=== PATIENT | male | born 1965 | race Caucasian/White ===

== ENCOUNTER → 2020-04-11 09:04 | Outpatient (REF) | payer BC, SELFPAY | LOC: ANHLAB 09:04 | PROVIDERS: PCP Internal Medicine; Visit Provider Nurse Practitioner | DX: C44.519 Basal cell carcinoma of skin of other part of trunk (principal); C44.219 Basal cell carcinoma of skin of left ear and external auricular canal | CPT/HCPCS: 88305 ==

== ENCOUNTER → 2020-06-05 07:08 | Outpatient (REF) | payer BC, SELFPAY | LOC: ANHLAB 07:08 | PROVIDERS: PCP Internal Medicine; Visit Provider Nurse Practitioner | DX: C44.519 Basal cell carcinoma of skin of other part of trunk (principal); C44.219 Basal cell carcinoma of skin of left ear and external auricular canal | CPT/HCPCS: 88305; 88331 ==

== ENCOUNTER 2021-07-12 08:19 | Emergency (ER) | payer OTHER, BC, SELFPAY ==
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
[2021-07-12 08:27] VITALS: BP 149/94; PULSE 72; RESP 16; TEMP 36.1; O2SAT 97
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
[2021-07-12] MEDS: HYDROcodone/acetaminophen (*CRX) 5-325 MG TABLET 1 TAB PO (10:00)
[2021-07-12] MEDS: IBUPROFEN 400 MG TABLET 800 MG PO (10:00)
== END 2021-07-12 10:00 | disposition home or self-care (01) ==
PROVIDERS: Emergency Provider Emergency Medicine; PCP Internal Medicine
DX: S16.1XXA Strain of muscle, fascia and tendon at neck level, initial encounter (principal); S39.012A Strain of muscle, fascia and tendon of lower back, initial encounter; E78.00 Pure hypercholesterolemia, unspecified; V49.40XA Driver injured in collision with unspecified motor vehicles in traffic accident, initial encounter; M51.36 Other intervertebral disc degeneration, lumbar region
CPT/HCPCS: 72100; 72125; 99284; A9270

== ENCOUNTER 2022-08-07 08:00 | Outpatient (NON) | payer BC, SELFPAY | END 2022-08-07 08:01 | disposition home or self-care (01) | PROVIDERS: PCP Internal Medicine; Visit Provider Nurse Practitioner | DX: D23.62 Other benign neoplasm of skin of left upper limb, including shoulder (principal); L82.1 Other seborrheic keratosis; B07.8 Other viral warts | CPT/HCPCS: 88305; 88342 ==

== ENCOUNTER 2023-01-19 13:40 | Emergency (ER) | payer BC, SELFPAY ==
[2023-01-19 13:59] VITALS: BP 151/81; PULSE 89; RESP 18; TEMP 36.2; O2SAT 97
--- NOTE | 2023-01-19 14:25 | ED.URI ---
HPI - URI/Sore Throat General Chief Complaint: Upper Respiratory Infection Stated Complaint: Sore Throat,Congestion,Cough Time Seen by Provider: 01/19/23 14:15 Source: patient Mode of arrival: ambulatory Limitations: no limitations History of Present Illness HPI Narrative: Patient is a 57-year-old male that presents with cough, sore throat that started Friday. States his throat is a 3/10 currently due to taking 100 mg of ibuprofen. Reports cough is productive. Reports having hot flashes and chills. Has been taking Sudafed and Benadryl, reports the 2nd dose of Sudafed made him irrationally angry. Denies any congestion, ear pain, nausea, vomiting, diarrhea. Throat soreness is constant, cough and chest congestion is worsening. Taken at home COVID test was negative Related Data Home Medications Medication Instructions Recorded Confirmed atorvastatin 40 mg tablet 40 mg PO DAILY 07/12/21 01/19/23 Allergies Allergy/AdvReac Type Severity Reaction Status Date / Time No Known Allergies Allergy Verified 01/19/23 13:56 Review of Systems Review of Systems: All systems reviewed & are unremarkable except as noted in HPI and below Constitutional: Constitutional: Denies body ache(s), Reports chills, Reports fever(s), Denies headache(s), Denies malaise and Denies weakness Eyes: Eyes: Denies loss of vision ENT: Denies otalgia, Denies headache(s), Reports nasal congestion, Denies sinus pain and Denies sore throat Cardiovascular: Cardiovascular: Denies chest pain, Denies irregular heart rhythm and Denies dyspnea Respiratory: Respiratory: Reports cough and Denies dyspnea Gastrointestinal: Gastrointestinal: Denies abdominal pain, Denies melena, Denies hematochezia, Denies diarrhea, Denies nausea and Denies vomiting Musculoskeletal: Musculoskeletal: Denies back pain, Denies myalgias and Denies arthralgias Integumentary/Breasts: Skin/Breast: Denies pruritus and Denies rash Neurologic: Denies headache(s), Denies loss of vision and Denies weakness Psychiatric: Psychiatric: Reports no additional psychiatric complaints [facility] Past Medical History Medical History (Updated 01/19/23 @ 14:29 by Izzy Garcia, PHOTOGRAPHER MODEL) Actinic keratosis Basal cell carcinoma (BCC) of antihelix of left ear Basal cell carcinoma (BCC) of upper back Benign mole High cholesterol History of basal cell carcinoma (BCC) Surgical History Surgical History History of blepharoplasty History of repair of ACL Family History Family History Father Hypertension Family history of alcoholism Family history of smoking Family history of chronic obstructive pulmonary disease, Onset Age: 67 Family history of coronary artery disease Patient's father is Family history of elevated blood lipids Social History Social History Smoking status: Never smoker Alcohol intake: current Comments At time of signature, agree with nursing past medical, surgical, social and family history. There is no relevant family history pertinent to the presenting complaint. Exam Const: General: cooperative, healthy appearing, comfortable, no acute distress and well nourished Nutritional Appearance: well nourished Orientation/consciousness: patient oriented x3 Limitations: no limitations HENMT: Head: normal to inspection, normocephalic and atraumatic Ears: external ears normal and TM's normal bilaterally Face/Nose/Sinus: Normal external nose present, normal facial exam, sinuses nontender and face symmetric Face and sinus: normal facial exam, sinuses nontender and face symmetric Mouth: Yes Normal oral and palatal mucosa present, Yes lip normal and Yes moist mucous membranes Teeth and gingiva: dentition normal Throat: tonsils normal, uvula midline, posterior oropharynx abnormal erythema and postnasa
== END 2023-01-19 14:30 | disposition home or self-care (01) ==
PROVIDERS: Emergency Provider Nurse Practitioner Family; PCP Internal Medicine
DX: J06.9 Acute upper respiratory infection, unspecified (principal)
CPT/HCPCS: 87081; 87880; 99213; G0463

== ENCOUNTER 2023-09-08 08:00 | Outpatient (NON) | payer BC, SELFPAY | END 2023-09-08 08:01 | disposition home or self-care (01) | LOC: ANHLAB 09-10 14:10 | PROVIDERS: PCP Internal Medicine; Visit Provider Nurse Practitioner | DX: L98.499 Non-pressure chronic ulcer of skin of other sites with unspecified severity (principal) | CPT/HCPCS: 88305 ==

== ENCOUNTER 2024-06-14 09:23 | Outpatient (CLI) | payer BC, SELFPAY ==
[2024-06-14 09:57] LABS: Basophils Absolute Auto 0.1 K/mm3 (0.0-0.1); Basophils Percent Auto 0.8 % (0.2-1.2); Eosinophils Absolute Auto 0.1 K/mm3 (0-0.3); Eosinophils Percent Auto 1.5 % (0-4.4); Hematocrit 44.9 % (42.0-52.0); Hemoglobin 14.8 g/dL (14.0-18.0); Immature Granulocyte Absolute 0.02 K/mm3 (0.00-0.031); Immature Granulocyte Percent A 0.3 % (0-0.5); Lymphocytes Absolute Auto 2.16 K/mm3 (0.9-3.2); Lymphocytes Percent Auto 36.2 % (18.3-44.2); Mean Corpuscular Hemoglobin 28.5 pg (26-34); Mean Corpuscular Volume 86.3 fl (80-100); Mean Platelet Volume 10.4 fl (7.4-10.4); Monocytes Absolute Auto 0.5 K/mm3 (0.1-0.6); Monocytes Percent Auto 7.6 % (2.6-8.5); Neutrophils Absolute Auto 3.2 K/mm3 (1.3-6.7); Neutrophils Percent Auto 53.6 % (45.5-73.1); Platelet Count Result 207 k/mm3 (150-375); Red Cell Distribution Width 13.1 % (11.5-14.5)
[2024-06-14 12:06] LABS: Alanine Aminotransferase 46 U/L (6-50); Albumin Level 4.7 g/dL (3.5-5.1); Alkaline Phosphatase 47 U/L (38-126); Anion Gap 12 mmol/L (4-12); Aspartate Amino Transferase 31 U/L (17-59); Blood Urea Nitrogen 15 mg/dL (9-20); Calcium 9.3 mg/dL (8.4-10.2); Carbon Dioxide 26 mmol/L (22-30); Chloride 101 mmol/L (98-107); Cholesterol 167 mg/dL (0-200); Estimated Glomerular Filt Rate > 60; Glucose 126 mg/dL (65-110); HDL Direct 46 mg/dL; Potassium 4.2 mmol/L (3.4-5.0); Sodium 139 mmol/L (137-145); Triglycerides 171 mg/dL (<150); Uric Acid 7.8 mg/dL (3.5-8.5)
[2024-06-14 12:17] LABS: LDL Cholesterol Direct 84 mg/dL
== END 2024-06-14 09:24 | disposition home or self-care (01) ==
LOC: ANHLAB 09:28
PROVIDERS: PCP Internal Medicine; Visit Provider Internal Medicine
DX: E78.5 Hyperlipidemia, unspecified (principal); M79.671 Pain in right foot
CPT/HCPCS: 36415; 80053; 80061; 84550; 85025

== ENCOUNTER 2025-03-14 09:39 | Outpatient (CLI) | payer BC, SELFPAY ==
--- OUTSIDE RECORDS SUMMARY | 2025-03-14 10:11 | XMS_ITS | Data Portability ---
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 If he gets approved see me for weeks if not 4 months hydroxyzine 25 q.h.s. p.r.n. anxiety [email or web address] Not available 05/16/2023 18:20:24 07/10/2023 07/10/2023 Blood work revie wed healthy lifestyle choices discussed get back on the Wegovy See me 3 months needs PSA Not available 07/10/2023 14:49:30 Plan of Treatment Reminders Order Date Submit Date Provider Last Modified By Organization Details Last Modified Time Details Appointments None recorded. Lab CMP, serum or plasma 2022 023 ALESSANDRO Not available 13:08:27 CBC w/ auto diff 2022 023 ALESSANDRO Not available 12:46:19 lipid panel, serum 2022 023 ALESSANDRO Not available 13:08:37 cortisol, serum or plasma 2022 023 ALESSANDRO Not available 13:32:53 testosteron e, free + total, serum 2022 023 ALESSANDRO Not available 09:14:25 T4, free, serum 2022 023 ALESSANDRO Not available 13:20:23 TSH, serum or plasma 2022 023 ALESSANDRO Not available 13:32:58 T3, free, serum or plasma 2022 023 ALESSANDRO Not available 13:20:30 Referral None recorded. Procedures None recorded. Surgeries None recorded. Imaging None recorded. Medication Orders Wegovy 0.25 mg/0.5 mL subcutaneou s pen injector 2022 023 [facility]/Pharmacy #[id number], [address] [place], [address], 12:25:31 Wegovy 0.25 mg/0.5 mL subcutaneou s pen injector 2022 023 [email or web address] [facility]/Pharmacy #[id number], [address] [place], [address], 13:08:20 hydroxyzine HCl 25 mg tablet 2022 023 [email or web address] [facility]/Pharmacy #[id number], [address] [place], [address], 11:32:37 Patient TargetsNo targets recorded. Patient Instructions Encounter Date Encounter Id Patient Instructions Last Modified By Organization Details Last Modified Time 07/10/2023 [id number] risk assessment* [id number] Not availabl e 07/10/2023 12:25:31 INFLUENZA VACCIN E TD/TDAP PNEUMONIA VACCINE Ordered Recommend ed today, patient declined Patient will get at local pharmacy/health department Recomm ended at age 67 SHINGLES Ordered Recommend ed today, patient declined Patient will get at local pharmacy/health department PSA COLORECTAL SCREENING No screening necessary patient is up to date DEPRESSION SCREENING Negative BMI Overweight continue your current weight loss efforts try to lose 5% of your body weight try to lose 10% of your body weight NUTRITION PHYSICAL ACTIVITY Need more exercise/physical activity ALCOHOL USE No alcohol use Occasional/So cial Use TOBACCO USE non smoker LUNG CANCER SCREENING Non Smoker-not indicated SEXUALLY ACTIVE HEPATITIS C SCREENING Not indicated GLUCOSE SCREENING LIPID SCREENING [id number] Not available 07/10/2023 11:53:20 Reason for Referral None Reported. Results Created Date Observation Date Name Description Value Unit Range Abnormal Flag Note LastModifiedBy Organization Detail LastModifiedTime 04/21/20 22 04/21/2022 COLOG UARD cologuard result reportable negati ve negati ve NEGAT DONN TEST RESUL T. A negat donn Colog uard resul t indic ates a low likel ihood that a color ectal cance r (CRC) or advan bj adeno ma (petey omato us polyp s with more advan bj pre-m align ant featu res) is prese nt. The chanc e that a perso n with a negat donn Colog uard test has a color ectal cance r is less than 1 in 1500 (nega tive predi ctive value >99.9 %) or has an advan bj adeno ma is less than 5.3% (nega tive predi ctive value 94.7% ). These data are based on a prosp ectiv e cross -sect ional study of 10,00 0 indiv idual s at [place] risk for color ectal cance r who were scree radha with both Colog uard and colon oscop y. (Danny Webber et al, N Engl J Med 2014; 370(1 4):12 86-12 97) The rohith l value (refe rence range ) for this assay is negat donn. COLOG UARD RE-SC REENI NG RECOM MENDA TION: Perio dic color ectal cance r scree william is an impor tant part of preve ntive healt hcare for asymp tomat ic indiv idual s at avera ge risk for color ectal cance r. Follo wing a negat donn Colog uard resul t, the Ameri can Cance r Socie ty and U.S. Multi -Soci ety Task Force scree william guide lines recom mend a Colog uard re-sc reeni ng inter curt of 3 years . Refer ences : Ameri can Cance r Socie ty Guide line for Color ectal Cance r Scree william: https ://virgie w.can cer.o rg/ca ncer/ colon -rect al-ca ncer/ detec tion- diagn osis- stagi ng/ac s-rec ommen datio ns.ht ml.; Jeovany DK, Duran fernandez CR, Alexandra CraigK, Color ectal Cance r Scree william: Recom menda tions for Physi cians and Patie nts from the U.S. Multi -Soci ety Task Force on Color ectal Cance r Scree william , Gabi Falcon oente rolog y 2017; 112:1 016-1 030. TEST DESCR IPTIO N: Moraida site algor ithmi c sultana sis of stool DNA-b chandu cardoso with hemog lobin immun oassa y. Quant itati ve value s of indiv idual bioma rkers are not repor table and are not assoc iated with indiv idual bioma rker resul t refer ence range s. Colog uard is inten ded for color ectal cance r scree william of adult s of eithe r sex, 45 years or older , who are at [facility] for color ectal cance r (CRC) . Colog uard has been appro qing for use by the U.S. FDA. The perfo rmanc e of Colog uard was estab lishe d in a cross secti onal study of [facility] adult s aged 50-84 . Colog uard perfo rmanc e in patie nts ages 45 to 49 years was estim ated by sub-g roup sultana sis of near- age group s. Colon oscop ies perfo rmed for a posit donn resul t may find as the most clini nehemias signi ficophelia t lesio n: color ectal cance r [4.0% ], advan bj adeno ma (incl uding sessi le mihaela gómez polyp s great er than or equal to 1cm diame ter) [20%] or non- advan bj adeno ma [31%] ; or no color ectal neopl luke [45%] . These estim ates are deriv ed from a prosp ectiv e cross -sect ional scree william study of 10,00 0 indiv idual s at [place] risk for color ectal cance r who were scree radha with both Colog uard and colon oscop y. (Danny Webber et al, N Engl J Med 2014; 370(1 4):12 86-12 97.) Colog uard may produ ce a false negat donn or false posit donn resul t (no color ectal cance r or preca ncero us polyp prese nt at colon oscop y follo w up). A negat donn Colog uard test resul t does not guara ntee the absen ce of CRC or advan bj adeno ma (pre- cance r). The curre nt Colog uard scree william inter curt is every 3 years . (Amer ican Cance r Socie ty and U.S. Multi -Soci ety Task Force ). Colog uard perfo rmanc e data in a 0 patie nt pivot al study using colon oscop y as the refer ence metho d can be acces sed at the follo wing locat ion: www.e xactl abs.c om/re sults . Addit ional descr iptio n of the Colog uard test proce ss, warni ngs and preca ution s can be found at www.c ologu henrik.c om. Not Available [facility] (Cologuard Orders Only) [address], [place], [address], 04/29/2022 09:51:29 05/29/2005/29/2023 CBC/C OMPLE TE BLD COUNT W/DIF F white blood cells 5.8 x10'3 /uL 4.2-10 .8 Not Available [facility] (Lab) [address] [place], [address], 05/29/2023 12:46:18 05/29/20 23 05/29/2023 CBC/C OMPLE TE BLD COUNT W/DIF F red blood cells 5.28 x10'6 /uL 4.10-5 .80 Not Available [facility] (Lab) [address] [facility] [place], [address], 05/29/2023 12:46:18 05/29/20 23 05/29/2023 CBC/C OMPLE TE BLD COUNT W/DIF F hemoglobin 14.9 g/dL 13.2-1 7.0 Not Available [facility] (Lab) [address] [place], [address], 05/29/2023 12:46:18 05/29/20 23 05/29/2023 CBC/C OMPLE TE BLD COUNT W/DIF F hematocrit 46.2 % 39.3-5 0.0 Not Available [facility] (Lab) [address] [place], [address], 05/29/2023 12:46:18 05/29/20 23 05/29/2023 CBC/C OMPLE TE BLD COUNT W/DIF F mean red cell volume 87.5 fL 80.0-9 7.0 Not Available [facility] (Lab) [address] [place], [address], 05/29/2023 12:46:18 05/29/2005/29/2023 CBC/C OMPLE TE BLD COUNT W/DIF F mean red cell hemoglobin 28.2 pg 27.0-3 3.0 Not Available [facility] (Lab) [address] [place], [address], 05/29/2023 12:46:18 05/29/2005/29/2023 CBC/C OMPLE TE BLD COUNT W/DIF F mean RBC HGB concentratio n 32.3 g/dL 31.0-3 6.0 Not Available [facility] (Lab) [address] [place], [address], 05/29/2023 12:46:18 05/29/20 23 05/29/2023 CBC/C OMPLE TE BLD COUNT W/DIF F red cell distribution width 13.1 % 11.8-1 5.5 Not Available [facility] (Lab) [address] [place], [address], 05/29/2023 12:46:18 05/29/20 23 05/29/2023 CBC/C OMPLE TE BLD COUNT W/DIF F platelets 248 x10'3 /uL 150-40 0 Not Available [facility] (Lab) [address] [place], [address], 05/29/2023 12:46:18 05/29/20 23 05/29/2023 CBC/C OMPLE TE BLD COUNT W/DIF F mean platelet volume 12.1 fL 9.0-12 .4 Not Available [facility] (Lab) [address] [place], [address], 05/29/2023 12:46:18 05/29/20 23 05/29/2023 CBC/C OMPLE TE BLD COUNT W/DIF F neutrophils 54.5 % 39.0-7 2.0 Not Available [facility] (Lab) [address] [place], [address], 05/29/2023 12:46:18 05/29/20 23 05/29/2023 CBC/C OMPLE TE BLD COUNT W/DIF F lymphocytes 36.0 % 16.0-4 7.0 Not Available [facility] (Lab) [address] [place], [address], 05/29/2023 12:46:18 05/29/20 23 05/29/2023 CBC/C OMPLE TE BLD COUNT W/DIF F monocytes 7.1 % 5.0-12 .0 Not Available [facility] (Lab) [address] [place], [address], 05/29/2023 12:46:18 05/29/20 23 05/29/2023 CBC/C OMPLE TE BLD COUNT W/DIF F eosinophils 1.5 % 1.0-7. 0 Not Available [facility] (Lab) [address] [place], [address], 05/29/2023 12:46:18 05/29/20 23 05/29/2023 CBC/C OMPLE TE BLD COUNT W/DIF F basophils 0.7 % 0.0-2. 0 Not Available [facility] (Lab) [address] [place], [address], 05/29/2023 12:46:18 05/29/20 23 05/29/2023 CBC/C OMPLE TE BLD COUNT W/DIF F immature granulocytes 0.2 % 0.00-0 .50 Not Available [facility] (Lab) [address] [facility] [place], [address], 05/29/2023 12:46:18 05/29/20 23 05/29/2023 CBC/C OMPLE TE BLD COUNT W/DIF F neutrophils, absolute count 3.17 x10'3 /uL 1.5-8. 0 Not Available [facility] (Lab) [address] [place], [address], 05/29/2023 12:46:18 05/29/20 23 05/29/2023 CBC/C OMPLE TE BLD COUNT W/DIF F lymphocytes, absolute count 2.09 x10'3 /uL 1.07-3 .43 Not Available [facility] (Lab) [address] [place], [address], 05/29/2023 12:46:18 05/29/20 23 05/29/2023 CBC/C OMPLE TE BLD COUNT W/DIF F monocytes, absolute count 0.41 x10'3 /uL 0.29-0 .99 Not Available [facility] (Lab) [address] [place], [address], 05/29/2023 12:46:18 05/29/20 23 05/29/2023 CBC/C OMPLE TE BLD COUNT W/DIF F eosinophils, absolute count 0.09 x10'3 /uL 0.02-0 .53 Not Available [facility] (Lab) [address] [place], [address], 05/29/2023 12:46:18 05/29/20 23 05/29/2023 CBC/C OMPLE TE BLD COUNT W/DIF F basophils, absolute count 0.04 x10'3 /uL 0.01-0 .08 Not Available [facility] (Lab) [address] [place], [address], 05/29/2023 12:46:18 05/29/20 23 05/29/2023 CBC/C OMPLE TE BLD COUNT W/DIF F immature granulocytes ,absolute 0.01 x10'3 /uL 0.00-0 .05 Not Available [facility] (Lab) [address] [place], [address], 05/29/2023 12:46:18 05/29/20 23 05/29/2023 CBC/C OMPLE TE BLD COUNT W/DIF F nucleated red blood cells 0.0 % -0 Not Available [facility] (Lab) [address] [place], [address], 05/29/2023 12:46:18 05/29/20 23 05/29/2023 CBC/C OMPLE TE BLD COUNT W/DIF F NRBC# 0.00 x10'3 /uL Not Available [facility] (Lab) [address] [place], [address], 05/29/2023 12:46:18 05/29/20 23 05/29/2023 COMPR EHENS DONN METAB OLIC PANEL sodium 140 mmol/ L 137-14 5 Not Available [facility] (Lab) [address] [place], [address], 05/29/2023 13:08:27 05/29/20 23 05/29/2023 COMPR EHENS DONN METAB OLIC PANEL potassium 4.5 mmol/ L 3.5-5. 1 Not Available [facility] (Lab) [address] [place], [address], 05/29/2023 13:08:27 05/29/20 23 05/29/2023 COMPR EHENS DONN METAB OLIC PANEL chloride 102 mmol/ L 98-107 Not Available [facility] (Lab) [address] [place], [address], 05/29/2023 13:08:27 05/29/20 23 05/29/2023 COMPR EHENS DONN METAB OLIC PANEL carbon dioxide 29 mmol/ L 22-30 Not Available [facility] (Lab) [address] [place], [address], 05/29/2023 13:08:27 05/29/20 23 05/29/2023 COMPR EHENS DONN METAB OLIC PANEL anion gap 13.5 mmol/ L 14-22 low Not Available [facility] (Lab) [address] [place], [address], 05/29/2023 13:08:27 05/29/20 23 05/29/2023 COMPR EHENS DONN METAB OLIC PANEL glucose 97 mg/dL 70-99 Not Available [facility] (Lab) [address] [place], [address], 05/29/2023 13:08:27 05/29/20 23 05/29/2023 COMPR EHENS DONN METAB OLIC PANEL BUN 13 mg/dL 8-19 Not Available [facility] (Lab) [address] [place], [address], 05/29/2023 13:08:27 05/29/20 23 05/29/2023 COMPR EHENS DONN METAB OLIC PANEL creatinine 0.81 mg/dL 0.66-1 .25 Not Available [facility] (Lab) [address] [place], [address], 05/29/2023 13:08:27 05/29/20 23 05/29/2023 COMPR EHENS DONN METAB OLIC PANEL GFR >60 Refer ence Range : [place] ge GFR Healt hy Adult : >60 mL/mi n/1.7 3 m2 Chron ic Kidne y Disea se: 15-60 mL/mi n/1.7 3 m2 Kidne y Failu re: <15/m L/min /1.73 m2 www.n iddk. [facility].g ov The MDRD study equat ion has not been valid ated in child martin <18 years of age; pregn ant women ; the elder ly >85 years of age; or in some racia l or ethni c subgr oups, such as Hisluna nics. Outsi de the valid ated myra eters , estim ated GFR is less accur ate, requi ring clini philip judgm ent on a case- by-ca se basis . Clini philip inter preta tion for other races and ages must be made by the clini kimber. The MDRD study equat ion has not been valid ated for the evalu ation of serum creat inine relat ed to nutri karmen l statu s or medic ation usage . For perso ns <18 years of age, a pedia tric GFR calcu lator is avail able on the [facility] websi te: https ://virgie reza.geeta wilson.o rg/pr ofess ional s/kdo qi/gf r_cal culat or Not Available [facility] (Lab) [address] [place], [address], 05/29/2023 13:08:27 05/29/20 23 05/29/2023 COMPR EHENS DONN METAB OLIC PANEL alkaline phosphatase 50 U/L 38-126 Not Available [facility] (Lab) [address] [place], [address], 05/29/2023 13:08:27 05/29/20 23 05/29/2023 COMPR EHENS DONN METAB OLIC PANEL alanine aminotransfe rase 49 U/L 0-50 Not Available [facility] (Lab) [address] [place], [address], 05/29/2023 13:08:27 05/29/20 23 05/29/2023 COMPR EHENS DONN METAB OLIC PANEL aspartate aminotransfe rase 32 U/L 15-46 Not Available [facility] (Lab) [address] [place], [address], 05/29/2023 13:08:27 05/29/20 23 05/29/2023 COMPR EHENS DONN METAB OLIC PANEL bilirubin, total 0.90 mg/dL 0.20-1 .30 Not Available [facility] (Lab) [address] [place], [address], 05/29/2023 13:08:27 05/29/20 23 05/29/2023 COMPR EHENS DONN METAB OLIC PANEL calcium 9.5 mg/dL 8.4-10 .2 Not Available [facility] (Lab) [address] [place], [address], 05/29/2023 13:08:27 05/29/20 23 05/29/2023 COMPR EHENS DONN METAB OLIC PANEL total protein 7.6 g/dL 6.3-8. 2 Not Available [facility] (Lab) [address] [place], [address], 05/29/2023 13:08:27 05/29/20 23 05/29/2023 COMPR EHENS DONN METAB OLIC PANEL albumin 4.6 g/dL 3.4-5. 0 Not Available [facility] (Lab) [address] [place], [address], 05/29/2023 13:08:27 05/29/20 23 05/29/2023 COMPR EHENS DONN METAB OLIC PANEL globulin 3.0 g/dL 2.6-4. 2 Not Available [facility] (Lab) [address] [place], [address], 05/29/2023 13:08:27 05/29/20 23 05/29/2023 COMPR EHENS DONN METAB OLIC PANEL A/G ratio 1.5 ratio 1.0-2. 0 Not Available [facility] (Lab) [address] [place], [address], 05/29/2023 13:08:27 05/29/20 23 05/29/2023 LIPID PANEL cholesterol 194 mg/dL 140-19 9 NIH SANDY NSUS RECOM MENDA TION FOR WIL STERO L: ADULT CHILD LOW RISK: <200 <170 BORDE RLINE : <200- 239 ----- HIGH RISK: >240 >200 Not Available [facility] (Lab) [address] [place], [address], 05/29/2023 13:08:37 05/29/20 23 05/29/2023 LIPID PANEL triglyceride s 246 mg/dL 0-150 high NIH SANDY NSUS REPOR T RECOM MENDA TION FOR TRIGL YCERI EDITH: ADULT CHILD LOW RISK: <150 ----- BODER LINE: 150-1 99 ----- HIGH RISK: >200 ----- Not Available [facility] (Lab) [address] [place], [address], 05/29/2023 13:08:37 05/29/2005/29/2023 LIPID PANEL HDL cholesterol 48 mg/dL 40- Not Available [facility] (Lab) [address] [place], [address], 05/29/2023 13:08:37 05/29/2005/29/2023 LIPID PANEL LDL cholesterol, calculated 97 mg/dL 0-130 NIH SANDY NSUS REPOR T RECOM MENDA TIONS FOR LDL: ADULT CHILD LOW RISK <130 <110 (OPTI MAL LDL) <100 ----- BORDE RLINE : 130-1 59 ----- HIGH RISK: >160 >130 A TRIGL YCERI DE RESUL T >400 INVAL IDATE S THE CALCU LATIO N FOR LDL FRACT IONAT ION - THE LDL RESUL T WILL NOT BE REPOR GÓMEZ. Not Available [facility] (Lab) [address] [place], [address], 05/29/2023 13:08:37 05/29/20 23 05/29/2023 T4 FREE free T4 1.00 NG/dL 0.78-2 .19 Not Available [facility] (Lab) [address] [place], [address], 05/29/2023 13:20:23 05/29/20 23 05/29/2023 T3 FREE free T3 3.3 pg/mL 2.77-5 .27 Not Available [facility] (Lab) [address] [place], [address], 05/29/2023 13:20:30 05/29/20 23 05/29/2023 CORTI LUTHER, TOTAL tigist 10.6 ug/dL CORTI LUTHER RESUL T COMME NT: Refer ence Range : Befor e 10 a.m. Speci men: 4.5-2 2.7 Refer ence Range : After 5 p.m. Speci men: 1.7-[address] ease inter pret above resul ts accor dingl y Not Available [facility] (Lab) [address] [place], [address], 05/29/2023 13:32:53 05/29/20 23 05/29/2023 TSH thyroid-stim ulating hormone 1.980 uIU/m L 0.465- 4.680 Not Available [facility] (Lab) [address] [place], [address], 05/29/2023 13:32:58 05/29/20 23 06/03/2023 TESTO STERO NE, FREE+ TOTAL LC/MS testosterone , total, lc/MS 546.9 NG/dL 264.0- 916.0 This [facility] rp LC/MS -MS metho d is currsolomon quesada certi fied by the [facility] Hormo ne Stand ardiz ation Progr am (HoSt ). Adult male refer garry elias is based on a popul ation of healt hy nonob radha males (BMI <30) betwe en 19 and 39 years old. Bishop cruz, et.al . JCEM 2017, 102;1 161-1 173. PMID: 84441 103. Not Available [facility] (Lab) [address] [place], [address], 06/03/2023 09:14:25 05/29/20 23 06/03/2023 TESTO STERO NE, FREE+ TOTAL LC/MS testosterone , free 13.62 NG/dL 5.00-2 1.00 Not Available [facility] (Lab) [address] [place], [address], 06/03/2023 09:14:25 05/29/20 23 06/03/2023 TESTO STERO NE, FREE+ TOTAL LC/MS % free testosterone 2.49 % 1.50-4 .20 Perfo rmed at: [facility] [place] [address] [facility] , [place] [address] Lab Direc tor: Oralia donnelly MD, Phone : [phone] Not Available [facility] (Lab) [address] [place], [address], 06/03/2023 09:14:25 Result Notes None recorded. 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 Procedures Surgical History Date Name Laterality Status Provider Name and Address Organization Details Recorded Time blepharoplasty completed Not Available [facility] 12/25/2022 02:55:59 Orthopedic Surgery completed Not Available [facility] 12/25/2022 02:55:59 Imaging Results None recorded. Procedure Notes None recorded. Medical Equipment None Reported. Allergies No known drug allergies Medications Name Sig Start Date Stop Date Status Note LastModified by Organization Details LastModified Time cyclobenz aprine 10 mg tablet 09/11 completed Not Available Not Available Not Available atorvasta tin 40 mg tablet TAKE 1 TABLET DAILY 2022 active Not Available Not Available Not Avai lable hydrocodo ne 5 mg-acetam inophen 325 mg tablet TAKE 1 TABLET BY MOUTH EVERY 4 TO 6 HOURS NEEDED FOR PAIN 10/28 completed Not Available Not Available Not Available meloxicam 15 mg tablet 10/28 completed Not Available Not Available Not Available prednison e 20 mg tablet 07/25 completed Not Available Not Available Not Available triamcino lone acetonide 0.1 % topical cream 07/25 completed Not Available Not Available Not Available meloxicam 7.5 mg tablet 08/13 completed Not Available Not Available Not Available amoxicill in 875 mg tablet 09/12 completed Not Available Not Available Not Available benzonata te 100 mg capsule 07/25 completed Not Available Not Available Not Available hydroxyzi ne HCl 25 mg tablet TAKE 1 TABLET BY MOUTH EVERYDAY AT BEDTIME 07/10 completed pt states wipes him out the next day after taking Hydroxyz ine Not Available Not Available Not Available Viagra 100 mg tablet take 1 30mins before intercou se no more then 1 in 24 hrs 10/28 completed Not Available Not Available Not Available Cheratuss in AC 10 mg-100 mg/5 mL oral liquid 07/25 completed Not Available Not Available Not Available cefuroxim e axetil 500 mg tablet 07/25 completed Not Available Not Available Not Available methylpre dnisolone 4 mg tablets in a dose pack 09/12 completed Not Available Not Available Not Available cefdinir 300 mg capsule active Not Available Not Available Not Available naproxen 500 mg tablet 09/11 completed Not Available Not Available Not Available amoxicill in 875 mg-potass ium clavulana te 125 mg tablet TAKE 1 TABLET BY MOUTH TWICE A DAY UNTIL FINISHED 09/12 completed Not Available Not Available Not Available Ilevro 0.3 % eye drops,tj pension 07/31 completed Not Available Not Available Not Available Flucelvax Quad (PF) 60 mcg (15 mcg x 4)/0.5 mL IM syringe 09/12 completed Not Available Not Available Not Available Fluzone Quad (PF) 60 mcg (15 mcg x 4)/0.5 mL IM syringe PHARMACY ADMINIST ERED 11/02 completed Not Available Not Available Not Available BinaxNOW COVID-19 Ag Self Test kit TEST DIRECTED TODAY 05/15 completed Not Available Not Available Not Available Wegovy 0.25 mg/0.5 mL subcutane ous pen injector INJECT 0.25MG WEEKLY FOR 2WKS THEN GO TO 0.5MG WEEKLY FOR 4WKS active Not Available Not Available No t Available Vitals Date Recorded Body height Body mass index (BMI) Body weight Body temperature Heart rate Oxygen saturation Oxygen saturation in Arterial blood by Pulse oximetry Systolic blood pressure Diastolic blood pressure Provider Name and Address Organization Details Last Updated DateTime 3 182.88 cm 35 kg/m2 652010. 83 g 98 [degF] 82 /min 98 % 98 % 122 mm[Hg] 80 mm[Hg] Sade Christian RN [facility] [employer] [facility] 3 10:35:37 Date Recorded Body height Body mass index (BMI) Body weight Body temperature Heart rate Systolic blood pressure Diastolic blood pressure Provider Name and Address Organization Details Last Updated DateTime 3 182.88 cm 34.9 kg/m2 788591. 24 g 97.4 [degF] 77 /min 130 mm[Hg] 82 mm[Hg] SAMANTHA Thompson [facility] [employer] [facility] 3 11:34:23 Date Recorded Body mass index (BMI) Body height Heart rate Body temperature Body weight Systolic blood pressure Diastolic blood pressure Provider Name and Address Organization Details Last Updated DateTime 1 36.3 kg/m2 182.88 cm 78 /min 97.7 [degF] 716674. 76 g 124 mm[Hg] 76 mm[Hg] Not Available [facility] 3 02:59:39 Date Recorded Body mass index (BMI) Body height Heart rate Body temperature Body weight Systolic blood pressure Diastolic blood pressure Provider Name and Address Organization Details Last Updated DateTime 2 36.1 kg/m2 182.88 cm 70 /min 96.1 [degF] 584118. 57 g 134 mm[Hg] 80 mm[Hg] Not Available [facility] 3 02:59:39 Date Recorded Body mass index (BMI) Body height Heart rate Body temperature Body weight Systolic blood pressure Diastolic blood pressure Provider Name and Address Organization Details Last Updated DateTime 2 35.8 kg/m2 182.88 cm 74 /min 97.4 [degF] 204491. 39 g 134 mm[Hg] 82 mm[Hg] Not Available [facility] 3 02:59:39 Social History Question Answer Notes LastModified by [employer] ion Details LastModified Time Tobacco Smoking Status Former Smoker quit age 23 Not Available [facility] 12/25/2022 02:45:37 Do You Have An Advance Directive? No [id number] Information not available 12/25/2022 Do You Wear A Helmet When Biking? Yes [id number] Information not available 12/25/2022 What Is Your Level Of Caffeine Consumption? Moderate [id number] Information not available 12/25/2022 How Much Tobacco Do You Chew? None [id number] Information not available 12/25/2022 In The 14 Days Before Symptom Onset, Have You Had Close Contact With A Laboratory-confi rmed COVID-19 While That Case Was Ill? No [id number] Information not available 12/25/2022 In The 14 Days Before Symptom Onset, Have You Had Close Contact With A Person Who Is Under Investigation For COVID-19 While That Person Was Ill? No [id number] Information not available 12/25/2022 [id number]||2025-03-14 12:10:00|XR_ITS|ELZIMMILIZ|Imaging|[id number]|"XR toe 1st RT min 2V Ordering provider: Nelly Raza, History: . PAIN IN RT TOE . Comparison: None. FINDINGS: BONES: No acute fracture or dislocation. JOINT SPACES: Osteoarthritic changes of the first metatarsophalangeal joint. SOFT TISSUES: Normal. IMPRESSION: No acute osseous abnormality. Osteoarthritic changes of the first metatarsophalangeal joint. Reviewed, dictated and finalized at location A. IMPRESSION: No acute osseous abnormality. Osteoarthritic changes of the first metatarsophalangeal joint. "
== END 2025-03-14 09:40 | disposition home or self-care (01) ==
PROVIDERS: PCP Internal Medicine; Visit Provider Internal Medicine
DX: M79.674 Pain in right toe(s) (principal); M19.071 Primary osteoarthritis, right ankle and foot
CPT/HCPCS: 73660